=== PATIENT | male | born 1955 | race Caucasian/White ===

== ENCOUNTER 2016-08-25 13:02 | Emergency (ER) | payer OTHER ==
[~2016-08-25] VITALS: Ht 177.8 cm; Wt 77.1 kg
[2016-08-25 13:06] VITALS: BP 125/80
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
[2016-08-25] MEDS ORDERED: OMEPRAZOLE40 M1 PO (13:53)
--- NOTE | 2016-08-25 14:24 | RADIOLOGY REPORT ---
EXAMINATION: XR FINGER, LEFT SECOND CLINICAL INFORMATION: Pain and swelling; question foreign body. COMPARISON: None. TECHNIQUE: Frontal, oblique and lateral views of the left index (second) finger are submitted. FINDINGS: Bony alignment and mineralization are normal. No fracture or dislocation is seen. There is soft tissue swelling of the digital and mid left index finger. No foreign body or soft tissue gas is seen There is mild osteoarthritic change of the interphalangeal joint of the thumb. IMPRESSION: There is soft tissue swelling of the distal and mid left index finger, without underlying fracture or radiopaque foreign body.
[2016-08-25] MEDS ORDERED: BACTRIM DS TAB1 EACH PO (14:55)
[2016-08-25] MEDS ORDERED: AMOXICILLIN500 M3 PO (14:55)
== END 2016-08-25 15:19 ==
LOC: ERH 13:02
DX: L02.512 Cutaneous abscess of left hand (principal)
CPT/HCPCS: 87184; 73140-LT; 87070; 87147